=== PATIENT | female | born 1940 | race Caucasian/White ===

== ENCOUNTER 2017-07-05 11:07 | Inpatient (IN) ==
[2017-07-05] MEDS ORDERED: DEXTROSE 50% 25 GM/50 ML VIAL IV PRN (15:03)
[2017-07-05] MEDS ORDERED: GLUCAGON 1 MG VIAL IM PRN (15:03)
[2017-07-05 15:38] LABS: Basophils # 0.2 10*3/uL (0.0-0.2); Basophils % 1.1 % (0.0-0.8); Eosinophils # 0.3 10*3/uL (0.0-0.87); Eosinophils % 1.8 % (0.00-10.9); Hematocrit 29.2 VOL% (35.7-47.0); Hemoglobin 8.9 GM/DL (12.0-16.0); Immature Granulocytes % 12.5 %; Immature Granulocytes Absolute 1.74 #; Lymphocytes # 1.2 10*3/uL (1.4-4.0); Lymphocytes % 8.9 % (21.3-54.2); Mean Corpuscular HGB Conc 30.5 GM/DL (32-36); Mean Corpuscular Hemoglobin 33 PG (27-34); Mean Platelet Volume 10.6 FL (9.6-12.0); Monocytes # 0.7 10*3/uL (0.11-0.8); Monocytes % 4.7 % (1.7-12.7); NRBC # 0.03 10*3/uL; Neutrophils # 9.9 10*3/uL (1.4-7.4); Platelet Count 304 T/CUMM (130-400); Red Blood Count 2.68 MC/CUMM (3.8-5.5); Red Cell Distribution Width 15.4 % (9.3-17.3)
[2017-07-05 15:39] LABS: ABG Base Excess 0.8 MMOL/L (-2.5-2.5); ABG HCO3 25.1 MMOL/L (20-26); ABG Oxygen Saturation 95.7 % (95-100); ABG PO2 92.5 MM HG (80-95); ABG TCO2 29.1 MMOL/L (23-27); Allen Test Positive; Pt O2 Delivery Device Other
[2017-07-05 15:43] LABS: ABG PCO2 80.6 MM HG (35-48)
[2017-07-05 15:48] LABS: INR 0.9; PT Patient Result 9.9 SECS
[2017-07-05 16:05] LABS: Calcium 8.8 MG/DL (8.5-10.1); Osmolality,Calculated 281.7 MOS/KG (273-304); Potassium 5.3 MMOL/L (3.5-5.1)
[2017-07-05 16:10] LABS: Lactic Acid 0.7 MMOL/L (0.4-2.0)
[2017-07-05 16:57] LABS: Anisocytosis 1+; Lymphocytes 17 % (20-55); Platelet Estimate Normal; Polychromasia Few; Segmented Neutrophils 78 % (50-85); Total Cells Counted 100
[2017-07-05 17:55] LABS: Allen Test Positive; Pt O2 Delivery Device BIPAP
[2017-07-05 17:56] LABS: ABG Base Excess 1.3 MMOL/L (-2.5-2.5); ABG HCO3 25.6 MMOL/L (20-26); ABG Oxygen Saturation 98.4 % (95-100); ABG TCO2 29.8 MMOL/L (23-27)
[2017-07-05 18:03] LABS: ABG PH 7.194 (7.35-7.45)
[2017-07-05] MEDS: FUROSEMIDE 40 MG/4 ML VIAL IV SCH (18:25)
[2017-07-05] MEDS: MEROPENEM 1,000 MG in SYRINGE 1 EACH IV SCH (18:31)
[2017-07-05] MEDS: ENOXAPARIN 40 MG/0.4 ML SYRINGE SUBCUT SCH (18:36)
[2017-07-05 19:13] LABS: Apearance,Urine Slightly Hazy (Clear); Bacteria,Urine Many /HPF (Few); Bilirubin,Urine Negative (Negative); Blood, Urine Moderate mg/dL (Negative); Glucose,Urine (UA) Negative (Negative); Ketones,Urine Negative (Negative); Mucus,Urine Occasional /LPF (Occasional); Nitrite,Urine Negative (Negative); Protein,Urine Negative; RBC,Urine 9 /HPF (0-4); Squamous Epithelial Cell,Urine Occasional /HPF (0-10); Urine Color Yellow (Yellow); Urine Specific Gravity 1.011 (1.001-1.035); Urine Urobilinogen < 2.0 EU/DL (0.2-1.0); WBC,Urine 7 /HPF (0-6)
[2017-07-05] MEDS: DOCUSATE SODIUM 100 MG CAPSULE PO SCH (20:22)
[2017-07-05] MEDS: VANCOMYCIN INJ 1,500 MG in SODIUM CHLORIDE 0.9% 500 ML IV SCH (20:22)
[2017-07-05 21:28] LABS: Hemoglobin 8.6 GM/DL (12.0-16.0)
[2017-07-05] MEDS: CARVEDILOL 12.5 MG TABLET PO SCH (22:25)
[2017-07-05] MEDS: INSULIN LISPRO 100 UNIT/ML SUBCUT SCH (22:25)
[2017-07-05] MEDS: ACETAMINOPHEN 325 MG TABLET PO PRN (23:00)
[2017-07-06 02:16] LABS: Basophils # 0.1 10*3/uL (0.0-0.2); Basophils % 0.7 % (0.0-0.8); Eosinophils # 0.2 10*3/uL (0.0-0.87); Eosinophils % 1.8 % (0.00-10.9); Hematocrit 27.2 VOL% (35.7-47.0); Hemoglobin 8.5 GM/DL (12.0-16.0); Immature Granulocytes Absolute 1.31 #; Lymphocytes # 1.3 10*3/uL (1.4-4.0); Mean Corpuscular HGB Conc 31.3 GM/DL (32-36); Mean Corpuscular Hemoglobin 33 PG (27-34); Mean Corpuscular Volume 105.8 FL (87-102); Mean Platelet Volume 10.6 FL (9.6-12.0); Monocytes # 0.7 10*3/uL (0.11-0.8); Neutrophils # 9.6 10*3/uL (1.4-7.4); Neutrophils % 72.5 % (38.7-73.9); Platelet Count 287 T/CUMM (130-400); Red Blood Count 2.57 MC/CUMM (3.8-5.5); Red Cell Distribution Width 15.2 % (9.3-17.3); White Blood Count 13.2 T/CUMM (4-12)
[2017-07-06 03:18] LABS: Calcium 8.6 MG/DL (8.5-10.1); Risk Ratio 3.68
[2017-07-06 03:49] LABS: Anisocytosis 1+; Band Neutrophils 13 % (0-10); Eosinophils 3 % (0-10); Lymphocytes 13 % (20-55); Metamyelocytes 1 %; Poikilocytosis 1+; Segmented Neutrophils 68 % (50-85); Total Cells Counted 100
[2017-07-06 04:43] LABS: ABG Base Excess 1.8 MMOL/L (-2.5-2.5); ABG HCO3 31.6 MMOL/L (20-26); ABG Oxygen Saturation 94.2 % (95-100); ABG PO2 88.9 MM HG (80-95); ABG TCO2 34.3 MMOL/L (23-27); Allen Test Positive; Pt O2 Delivery Device BIPAP
[2017-07-06 04:44] LABS: ABG PCO2 88.5 MM HG (35-48)
[2017-07-06] MEDS: MEROPENEM 1,000 MG in SYRINGE 1 EACH IV SCH ×3 (05:15→17:30)
[2017-07-06] MEDS ORDERED: AMINOPHYLLINE 250 MG in SODIUM CHLORIDE 0.9% 100 ML IV ONE (06:43)
[2017-07-06] MEDS ORDERED: AMINOPHYLLINE 500 MG in SODIUM CHLORIDE 0.9% 480 ML IV SCH (07:00)
[2017-07-06] MEDS: INSULIN LISPRO 100 UNIT/ML SUBCUT SCH ×4 (07:42→21:25)
[2017-07-06] MEDS: FUROSEMIDE 40 MG/4 ML VIAL IV SCH ×2 (08:13→15:01)
[2017-07-06] MEDS: PANTOPRAZOLE 40 MG TABLET PO SCH (08:14)
[2017-07-06] MEDS: THEOPHYLLINE ER (24 HR) 400 MG CAPSULE PO SCH (08:14)
[2017-07-06] MEDS: ALLOPURINOL 300 MG TABLET PO SCH (08:14)
[2017-07-06] MEDS: CARVEDILOL 12.5 MG TABLET PO SCH ×2 (08:14→21:23)
[2017-07-06] MEDS: DOCUSATE SODIUM 100 MG CAPSULE PO SCH ×2 (08:14→21:25)
[2017-07-06 09:49] LABS: Hematocrit 28.2 VOL% (35.7-47.0)
[2017-07-06 10:01] LABS: ABG PCO2 81.3 MM HG (35-48)
[2017-07-06] MEDS: ACETAMINOPHEN 325 MG TABLET PO PRN ×2 (14:58→21:24)
[2017-07-06] MEDS: ENOXAPARIN 40 MG/0.4 ML SYRINGE SUBCUT SCH (17:20)
[2017-07-06] MEDS: VANCOMYCIN INJ 1,500 MG in SODIUM CHLORIDE 0.9% 500 ML IV SCH (20:30)
[2017-07-07 04:12] LABS: ABG Base Excess 9.4 MMOL/L (-2.5-2.5); ABG HCO3 35.5 MMOL/L (20-26); ABG Oxygen Saturation 95.2 % (95-100); ABG PCO2 58.5 MM HG (35-48); ABG PH 7.401 (7.35-7.45); ABG PO2 81.3 MM HG (80-95); ABG TCO2 37.3 MMOL/L (23-27); Allen Test Positive; Pt O2 Delivery Device BIPAP
[2017-07-07] MEDS: MEROPENEM 1,000 MG in SYRINGE 1 EACH IV SCH ×3 (06:38→17:12)
[2017-07-07] MEDS: ACETAMINOPHEN 325 MG TABLET PO PRN ×2 (06:39→16:43)
[2017-07-07] MEDS: INSULIN LISPRO 100 UNIT/ML SUBCUT SCH ×4 (07:39→21:44)
[2017-07-07] MEDS: FLUTICASONE 50 MCG NASAL SPRAY 16 GM BOTTLE BOTH NARES SCH (09:00)
[2017-07-07] MEDS: DOCUSATE SODIUM 100 MG CAPSULE PO SCH ×2 (09:08→21:44)
[2017-07-07] MEDS: THEOPHYLLINE ER (24 HR) 400 MG CAPSULE PO SCH (09:08)
[2017-07-07] MEDS: ALLOPURINOL 300 MG TABLET PO SCH (09:08)
[2017-07-07] MEDS: FUROSEMIDE 40 MG/4 ML VIAL IV SCH ×2 (09:09→16:44)
[2017-07-07] MEDS: CARVEDILOL 12.5 MG TABLET PO SCH ×2 (09:09→21:43)
[2017-07-07] MEDS: PANTOPRAZOLE 40 MG TABLET PO SCH (09:09)
[2017-07-07] MEDS: ENOXAPARIN 40 MG/0.4 ML SYRINGE SUBCUT SCH (16:43)
[2017-07-07] MEDS: ONDANSETRON 4 MG/2 ML VIAL IV PRN (16:48)
[2017-07-07 19:59] LABS: Calcium 8.7 MG/DL (8.5-10.1); Osmolality,Calculated 281.1 MOS/KG (273-304); Potassium 3.9 MMOL/L (3.5-5.1)
[2017-07-07] MEDS: VANCOMYCIN INJ 1,500 MG in SODIUM CHLORIDE 0.9% 500 ML IV SCH (21:43)
[2017-07-08] MEDS: ACETAMINOPHEN 325 MG TABLET PO PRN (01:00)
[2017-07-08 03:49] LABS: Allen Test Positive
[2017-07-08 03:50] LABS: ABG Base Excess 14.6 MMOL/L (-2.5-2.5); ABG HCO3 38.4 MMOL/L (20-26); ABG Oxygen Saturation 92.6 % (95-100); ABG PH 7.389 (7.35-7.45); ABG PO2 67.5 MM HG (80-95); ABG TCO2 39.3 MMOL/L (23-27)
[2017-07-08 03:53] LABS: ABG PCO2 69.8 MM HG (35-48)
[2017-07-08 05:16] LABS: Basophils # 0.1 10*3/uL (0.0-0.2); Basophils % 1.3 % (0.0-0.8); Eosinophils # 0.5 10*3/uL (0.0-0.87); Hemoglobin 8.4 GM/DL (12.0-16.0); Immature Granulocytes % 9.3 %; Immature Granulocytes Absolute 0.97 #; Lymphocytes # 1.7 10*3/uL (1.4-4.0); Lymphocytes % 16.2 % (21.3-54.2); Mean Corpuscular HGB Conc 32.3 GM/DL (32-36); Mean Corpuscular Hemoglobin 34 PG (27-34); Mean Corpuscular Volume 104.4 FL (87-102); Mean Platelet Volume 9.7 FL (9.6-12.0); Monocytes # 0.5 10*3/uL (0.11-0.8); Monocytes % 5.2 % (1.7-12.7); NRBC # 0.02 10*3/uL; Neutrophils # 6.6 10*3/uL (1.4-7.4); Platelet Count 278 T/CUMM (130-400); Red Blood Count 2.49 MC/CUMM (3.8-5.5); Red Cell Distribution Width 14.6 % (9.3-17.3); White Blood Count 10.5 T/CUMM (4-12)
[2017-07-08 05:55] LABS: Calcium 8.4 MG/DL (8.5-10.1)
[2017-07-08] MEDS: MEROPENEM 1,000 MG in SYRINGE 1 EACH IV SCH ×3 (06:13→18:11)
[2017-07-08 07:13] LABS: Band Neutrophils 8 % (0-10); Eosinophils 2 % (0-10); Lymphocytes 14 % (20-55); Myelocytes 1 %; Segmented Neutrophils 70 % (50-85); Total Cells Counted 100
[2017-07-08 07:14] LABS: Hypochromasia 2+; Macrocytosis 1+; Platelet Estimate Adequate; Target Cells Slight
[2017-07-08] MEDS: INSULIN LISPRO 100 UNIT/ML SUBCUT SCH ×4 (07:57→21:34)
[2017-07-08] MEDS: ALLOPURINOL 300 MG TABLET PO SCH (09:24)
[2017-07-08] MEDS: THEOPHYLLINE ER (24 HR) 400 MG CAPSULE PO SCH (09:24)
[2017-07-08] MEDS: CARVEDILOL 12.5 MG TABLET PO SCH ×2 (09:24→21:33)
[2017-07-08] MEDS: DOCUSATE SODIUM 100 MG CAPSULE PO SCH ×2 (09:24→21:33)
[2017-07-08] MEDS: FLUTICASONE 50 MCG NASAL SPRAY 16 GM BOTTLE BOTH NARES SCH (09:25)
[2017-07-08] MEDS: FUROSEMIDE 40 MG/4 ML VIAL IV SCH ×2 (09:25→16:59)
[2017-07-08] MEDS: PANTOPRAZOLE 40 MG TABLET PO SCH (09:25)
[2017-07-08 16:57] LABS: ABG Base Excess 18.7 MMOL/L (-2.5-2.5); ABG HCO3 42.7 MMOL/L (20-26); ABG Oxygen Saturation 90.9 % (95-100); ABG PH 7.397 (7.35-7.45); ABG PO2 62.3 MM HG (80-95); ABG TCO2 43.7 MMOL/L (23-27)
[2017-07-08 16:59] LABS: ABG PCO2 76.1 MM HG (35-48)
[2017-07-08] MEDS: ENOXAPARIN 40 MG/0.4 ML SYRINGE SUBCUT SCH (18:10)
[2017-07-08] MEDS: VANCOMYCIN INJ 1,500 MG in SODIUM CHLORIDE 0.9% 500 ML IV SCH (21:34)
[2017-07-09 03:18] LABS: ABG Base Excess 18.7 MMOL/L (-2.5-2.5); ABG Oxygen Saturation 98.8 % (95-100); ABG PCO2 60.2 MM HG (35-48); ABG PH 7.484 (7.35-7.45); ABG TCO2 41.6 MMOL/L (23-27); Allen Test Positive; Pt O2 Delivery Device BIPAP
[2017-07-09] MEDS: MEROPENEM 1,000 MG in SYRINGE 1 EACH IV SCH ×3 (03:30→19:32)
[2017-07-09] MEDS ORDERED: MAGNESIUM CHLORIDE 64 MG TABLET PO SCH (09:00)
[2017-07-09] MEDS ORDERED: FLUTICASONE 50 MCG NASAL SPRAY 16 GM BOTTLE BOTH NARES SCH (09:00)
[2017-07-09] MEDS ORDERED: ERGOCALCIFEROL 50,000 UNIT CAPSULE PO SCH (09:00)
[2017-07-09] MEDS: ALLOPURINOL 300 MG TABLET PO SCH (09:03)
[2017-07-09] MEDS: THEOPHYLLINE ER (24 HR) 400 MG CAPSULE PO SCH (09:03)
[2017-07-09] MEDS: PANTOPRAZOLE 40 MG TABLET PO SCH (09:03)
[2017-07-09] MEDS: CALCITRIOL 0.25 MCG CAPSULE PO SCH (09:03)
[2017-07-09] MEDS: SERTRALINE 50 MG TABLET PO SCH (09:03)
[2017-07-09] MEDS: CARVEDILOL 12.5 MG TABLET PO SCH ×2 (09:03→20:28)
[2017-07-09] MEDS: DOCUSATE SODIUM 100 MG CAPSULE PO SCH ×2 (09:03→20:28)
[2017-07-09] MEDS: FUROSEMIDE 40 MG/4 ML VIAL IV SCH ×2 (09:07→19:31)
[2017-07-09] MEDS: INSULIN LISPRO 100 UNIT/ML SUBCUT SCH ×4 (09:11→20:28)
[2017-07-09] MEDS: MAGNESIUM CHLORIDE 64 MG TABLET PO SCH ×2 (09:11→20:28)
[2017-07-09] MEDS: FLUTICASONE 50 MCG NASAL SPRAY 16 GM BOTTLE BOTH NARES SCH (09:20)
[2017-07-09] MEDS: ACETAMINOPHEN 325 MG TABLET PO PRN (10:01)
[2017-07-09] MEDS: ENOXAPARIN 40 MG/0.4 ML SYRINGE SUBCUT SCH (19:41)
[2017-07-09] MEDS: VANCOMYCIN INJ 1,500 MG in SODIUM CHLORIDE 0.9% 500 ML IV SCH (20:38)
[2017-07-10] MEDS: MEROPENEM 1,000 MG in SYRINGE 1 EACH IV SCH ×2 (03:27→09:28)
[2017-07-10 05:20] LABS: Basophils # 0.1 10*3/uL (0.0-0.2); Basophils % 1.1 % (0.0-0.8); Eosinophils # 0.4 10*3/uL (0.0-0.87); Eosinophils % 3.7 % (0.00-10.9); Hematocrit 26.8 VOL% (35.7-47.0); Hemoglobin 8.7 GM/DL (12.0-16.0); Immature Granulocytes % 9.7 %; Immature Granulocytes Absolute 1.15 #; Lymphocytes # 1.5 10*3/uL (1.4-4.0); Lymphocytes % 12.4 % (21.3-54.2); Mean Corpuscular HGB Conc 32.5 GM/DL (32-36); Mean Corpuscular Hemoglobin 34 PG (27-34); Mean Corpuscular Volume 103.5 FL (87-102); Monocytes # 0.7 10*3/uL (0.11-0.8); Monocytes % 5.5 % (1.7-12.7); Neutrophils % 67.6 % (38.7-73.9); Platelet Count 259 T/CUMM (130-400); Red Blood Count 2.59 MC/CUMM (3.8-5.5); Red Cell Distribution Width 14.5 % (9.3-17.3); White Blood Count 11.8 T/CUMM (4-12)
[2017-07-10 05:35] LABS: Albumin 2.6 G/DL (3.4-5.0); Bilirubin,Total 0.7 MG/DL (0.2-1.0); Calcium 8.6 MG/DL (8.5-10.1); Osmolality,Calculated 275.5 MOS/KG (273-304); Potassium 3.6 MMOL/L (3.5-5.1); Total Protein 6.9 G/DL (6.4-8.3)
[2017-07-10 05:41] LABS: Band Neutrophils 3 % (0-10); Eosinophils 5 % (0-10); Giant Platelets Few; Hypochromasia 1+; Lymphocytes 15 % (20-55); Macrocytosis Slight; Myelocytes 1 %; Ovalocytes Slight; Platelet Estimate Adequate; Segmented Neutrophils 71 % (50-85); Total Cells Counted 100
[2017-07-10] MEDS: MAGNESIUM CHLORIDE 64 MG TABLET PO SCH ×2 (09:29→20:15)
[2017-07-10] MEDS: THEOPHYLLINE ER (24 HR) 400 MG CAPSULE PO SCH (09:29)
[2017-07-10] MEDS: CARVEDILOL 12.5 MG TABLET PO SCH ×2 (09:29→20:15)
[2017-07-10] MEDS: SERTRALINE 50 MG TABLET PO SCH (09:29)
[2017-07-10] MEDS: ALLOPURINOL 300 MG TABLET PO SCH (09:29)
[2017-07-10] MEDS: PANTOPRAZOLE 40 MG TABLET PO SCH (09:29)
[2017-07-10] MEDS: DOCUSATE SODIUM 100 MG CAPSULE PO SCH ×2 (09:30→20:16)
[2017-07-10] MEDS: INSULIN LISPRO 100 UNIT/ML SUBCUT SCH ×4 (09:30→20:21)
[2017-07-10] MEDS: FLUTICASONE 50 MCG NASAL SPRAY 16 GM BOTTLE BOTH NARES SCH (09:30)
[2017-07-10] MEDS: FUROSEMIDE 40 MG/4 ML VIAL IV SCH ×2 (09:34→17:12)
[2017-07-10] MEDS: CEFUROXIME 250 MG TABLET PO SCH ×2 (11:27→20:16)
[2017-07-10] MEDS: ENOXAPARIN 40 MG/0.4 ML SYRINGE SUBCUT SCH (17:12)
[2017-07-10] MEDS: ZALEPLON 5 MG CAPSULE PO SCH (20:15)
[2017-07-11 05:40] LABS: Basophils # 0.2 10*3/uL (0.0-0.2); Basophils % 1.5 % (0.0-0.8); Eosinophils # 0.4 10*3/uL (0.0-0.87); Eosinophils % 3.3 % (0.00-10.9); Hematocrit 27.8 VOL% (35.7-47.0); Immature Granulocytes % 10.5 %; Immature Granulocytes Absolute 1.26 #; Lymphocytes # 1.3 10*3/uL (1.4-4.0); Lymphocytes % 10.6 % (21.3-54.2); Mean Corpuscular HGB Conc 32.4 GM/DL (32-36); Mean Corpuscular Hemoglobin 34 PG (27-34); Mean Corpuscular Volume 103.7 FL (87-102); Mean Platelet Volume 10.5 FL (9.6-12.0); Monocytes # 0.6 10*3/uL (0.11-0.8); Monocytes % 4.8 % (1.7-12.7); NRBC # 0.03 10*3/uL; Neutrophils # 8.3 10*3/uL (1.4-7.4); Neutrophils % 69.3 % (38.7-73.9); Platelet Count 251 T/CUMM (130-400); Red Blood Count 2.68 MC/CUMM (3.8-5.5); Red Cell Distribution Width 14.5 % (9.3-17.3)
[2017-07-11 06:10] LABS: Band Neutrophils 3 % (0-10); Eosinophils 4 % (0-10); Lymphocytes 13 % (20-55); Nucleated Red Blood Cells 2 (0-5); Segmented Neutrophils 73 % (50-85); Total Cells Counted 100
[2017-07-11 06:11] LABS: Giant Platelets Few; Hypochromasia 1+; Ovalocytes Slight; Platelet Estimate Adequate
[2017-07-11 06:12] LABS: Macrocytosis Slight
[2017-07-11 06:31] LABS: Calcium 8.9 MG/DL (8.5-10.1); Osmolality,Calculated 272.7 MOS/KG (273-304); Potassium 3.8 MMOL/L (3.5-5.1)
[2017-07-11] MEDS: INSULIN LISPRO 100 UNIT/ML SUBCUT SCH ×4 (07:45→21:13)
[2017-07-11] MEDS: PANTOPRAZOLE 40 MG TABLET PO SCH ×2 (08:40→20:59)
[2017-07-11] MEDS: THEOPHYLLINE ER (24 HR) 400 MG CAPSULE PO SCH (08:40)
[2017-07-11] MEDS: CALCITRIOL 0.25 MCG CAPSULE PO SCH (08:40)
[2017-07-11] MEDS: MAGNESIUM CHLORIDE 64 MG TABLET PO SCH ×2 (08:41→20:59)
[2017-07-11] MEDS: CARVEDILOL 12.5 MG TABLET PO SCH ×2 (08:41→21:08)
[2017-07-11] MEDS: CEFUROXIME 250 MG TABLET PO SCH ×2 (08:41→20:59)
[2017-07-11] MEDS: ALLOPURINOL 300 MG TABLET PO SCH (08:41)
[2017-07-11] MEDS: FLUTICASONE 50 MCG NASAL SPRAY 16 GM BOTTLE BOTH NARES SCH (08:42)
[2017-07-11] MEDS: FUROSEMIDE 40 MG/4 ML VIAL IV SCH (08:42)
[2017-07-11] MEDS: DOCUSATE SODIUM 100 MG CAPSULE PO SCH ×2 (08:42→21:02)
[2017-07-11] MEDS: SERTRALINE 50 MG TABLET PO SCH (08:42)
[2017-07-11] MEDS ORDERED: NON-FORMULARY MEDICATION (Acetaminophen [Pain Relief] 650 MG) PO PRN (10:13)
[2017-07-11] MEDS ORDERED: NON-FORMULARY MEDICATION (Losartan Potassium [Losartan Potassium] 100 MG) PO SCH (10:13)
[2017-07-11] MEDS ORDERED: ENOXAPARIN 30 MG/0.3 ML SYRINGE SUBCUT SCH (10:13)
[2017-07-11] MEDS ORDERED: LOSARTAN 50 MG TABLET PO SCH (11:30)
[2017-07-11] MEDS: ONDANSETRON 4 MG/2 ML VIAL IV SCH ×2 (11:35→16:39)
[2017-07-11] MEDS: NITROFURANTOIN MACRO/MONO 100 MG CAPSULE PO SCH ×2 (11:57→21:08)
[2017-07-11] MEDS: CLOPIDOGREL 75 MG TABLET PO SCH (11:57)
[2017-07-11] MEDS: LIDOCAINE 5% PATCH TRANSDERM SCH (11:57)
[2017-07-11] MEDS: ENOXAPARIN 40 MG/0.4 ML SYRINGE SUBCUT SCH (16:39)
[2017-07-11] MEDS: ZALEPLON 5 MG CAPSULE PO SCH (20:59)
[2017-07-12] MEDS: ONDANSETRON 4 MG/2 ML VIAL IV SCH ×4 (01:59→17:00)
[2017-07-12] MEDS: ACETAMINOPHEN 325 MG TABLET PO PRN (02:00)
[2017-07-12 05:53] LABS: Basophils # 0.1 10*3/uL (0.0-0.2); Basophils % 0.5 % (0.0-0.8); Eosinophils # 0.2 10*3/uL (0.0-0.87); Eosinophils % 2.2 % (0.00-10.9); Hematocrit 24.4 VOL% (35.7-47.0); Immature Granulocytes % 9.5 %; Immature Granulocytes Absolute 1.05 #; Lymphocytes # 1.3 10*3/uL (1.4-4.0); Lymphocytes % 11.9 % (21.3-54.2); Mean Corpuscular HGB Conc 32.8 GM/DL (32-36); Mean Corpuscular Hemoglobin 33 PG (27-34); Mean Corpuscular Volume 101.2 FL (87-102); Mean Platelet Volume 10.7 FL (9.6-12.0); Monocytes # 0.6 10*3/uL (0.11-0.8); Monocytes % 5.4 % (1.7-12.7); NRBC # 0.05 10*3/uL; Neutrophils # 7.8 10*3/uL (1.4-7.4); Neutrophils % 70.5 % (38.7-73.9); Platelet Count 265 T/CUMM (130-400); Red Blood Count 2.41 MC/CUMM (3.8-5.5); Red Cell Distribution Width 14.8 % (9.3-17.3); White Blood Count 11.1 T/CUMM (4-12)
[2017-07-12 06:22] LABS: Eosinophils 6 % (0-10); Hypochromasia 1+; Lymphocytes 13 % (20-55); Ovalocytes Slight; Platelet Estimate Adequate; Segmented Neutrophils 76 % (50-85); Total Cells Counted 100
[2017-07-12 06:23] LABS: Calcium 8.5 MG/DL (8.5-10.1); Osmolality,Calculated 280.7 MOS/KG (273-304); Potassium 3.8 MMOL/L (3.5-5.1)
[2017-07-12] MEDS: INSULIN LISPRO 100 UNIT/ML SUBCUT SCH ×4 (07:53→22:27)
[2017-07-12] MEDS: MAGNESIUM CHLORIDE 64 MG TABLET PO SCH ×2 (08:30→22:27)
[2017-07-12] MEDS: CARVEDILOL 12.5 MG TABLET PO SCH ×2 (08:31→22:27)
[2017-07-12] MEDS: ALLOPURINOL 300 MG TABLET PO SCH (08:31)
[2017-07-12] MEDS: CEFUROXIME 250 MG TABLET PO SCH ×2 (08:31→22:26)
[2017-07-12] MEDS: PANTOPRAZOLE 40 MG TABLET PO SCH ×2 (08:31→22:27)
[2017-07-12] MEDS: THEOPHYLLINE ER (24 HR) 400 MG CAPSULE PO SCH (08:31)
[2017-07-12] MEDS: SERTRALINE 50 MG TABLET PO SCH (08:31)
[2017-07-12] MEDS: DOCUSATE SODIUM 100 MG CAPSULE PO SCH ×2 (08:31→22:27)
[2017-07-12] MEDS: LIDOCAINE 5% PATCH TRANSDERM SCH (08:44)
[2017-07-12] MEDS: CLOPIDOGREL 75 MG TABLET PO SCH (08:44)
[2017-07-12 11:55] LABS: Apearance,Urine CLOUDY (Clear); Bilirubin,Urine Negative (Negative); Blood, Urine Moderate mg/dL (Negative); Glucose,Urine (UA) Negative (Negative); Granular Casts,Urine 11 /LPF (0-1); Hyaline Casts,Urine 9 /LPF (0-3); Ketones,Urine Negative (Negative); Mucus,Urine Occasional /LPF (Occasional); Nitrite,Urine Negative (Negative); Protein,Urine 100 MG/DL; RBC,Urine 23 /HPF (0-4); Squamous Epithelial Cell,Urine Occasional /HPF (0-10); Urine Color Amber (Yellow); Urine Specific Gravity 1.025 (1.001-1.035); Urine Urobilinogen < 2.0 EU/DL (0.2-1.0); WBC,Urine 20 /HPF (0-6)
[2017-07-12] MEDS ORDERED: SODIUM CHLORIDE 0.9% 1,000 ML IV SCH (12:30)
[2017-07-12] MEDS: SODIUM CHLORIDE 0.45% 1,000 ML IV SCH ×2 (13:28→22:26)
[2017-07-12] MEDS: ENOXAPARIN 40 MG/0.4 ML SYRINGE SUBCUT SCH (17:26)
[2017-07-12] MEDS: ZALEPLON 5 MG CAPSULE PO SCH (22:27)
[2017-07-13] MEDS: ONDANSETRON 4 MG/2 ML VIAL IV SCH ×5 (01:40→23:11)
[2017-07-13 02:11] LABS: Basophils # 0.1 10*3/uL (0.0-0.2); Basophils % 0.4 % (0.0-0.8); Eosinophils # 0.2 10*3/uL (0.0-0.87); Eosinophils % 1.7 % (0.00-10.9); Hematocrit 23.2 VOL% (35.7-47.0); Hemoglobin 7.8 GM/DL (12.0-16.0); Immature Granulocytes % 7.4 %; Immature Granulocytes Absolute 0.87 #; Lymphocytes % 8.3 % (21.3-54.2); Mean Corpuscular HGB Conc 33.6 GM/DL (32-36); Mean Corpuscular Hemoglobin 34 PG (27-34); Mean Platelet Volume 10.8 FL (9.6-12.0); Monocytes # 0.5 10*3/uL (0.11-0.8); Monocytes % 4.4 % (1.7-12.7); NRBC # 0.02 10*3/uL; Neutrophils # 9.2 10*3/uL (1.4-7.4); Neutrophils % 77.8 % (38.7-73.9); Platelet Count 238 T/CUMM (130-400); Red Blood Count 2.32 MC/CUMM (3.8-5.5); Red Cell Distribution Width 14.8 % (9.3-17.3); White Blood Count 11.8 T/CUMM (4-12)
[2017-07-13 02:37] LABS: Albumin 2.5 G/DL (3.4-5.0); Bilirubin,Total 0.6 MG/DL (0.2-1.0); Osmolality,Calculated 276.1 MOS/KG (273-304); Potassium 4.1 MMOL/L (3.5-5.1); Total Protein 6.7 G/DL (6.4-8.3)
[2017-07-13 02:44] LABS: Free T4 (Free Thyroxine) 0.79 NG/DL (0.76-1.46); Thyroid Stimulating Hormone 2.4 uIU/ml (0.358-3.74)
[2017-07-13 03:05] LABS: Calcium 7.9 MG/DL (8.5-10.1); Osmolality,Calculated 276.1 MOS/KG (273-304); Potassium 4.1 MMOL/L (3.5-5.1)
[2017-07-13 05:39] LABS: Band Neutrophils 2 % (0-10); Lymphocytes 11 % (20-55); Platelet Estimate Normal; Segmented Neutrophils 87 % (50-85); Total Cells Counted 100
[2017-07-13] MEDS: SODIUM CHLORIDE 0.45% 1,000 ML IV SCH (06:45)
[2017-07-13] MEDS: INSULIN LISPRO 100 UNIT/ML SUBCUT SCH ×4 (07:53→20:30)
[2017-07-13] MEDS: SODIUM CHLORIDE 0.9% 1,000 ML IV SCH ×2 (08:34→19:15)
[2017-07-13] MEDS: DOCUSATE SODIUM 100 MG CAPSULE PO SCH ×2 (09:13→20:33)
[2017-07-13] MEDS: CEFUROXIME 250 MG TABLET PO SCH ×2 (09:14→20:30)
[2017-07-13] MEDS: SERTRALINE 50 MG TABLET PO SCH (09:14)
[2017-07-13] MEDS: ALLOPURINOL 300 MG TABLET PO SCH (09:14)
[2017-07-13] MEDS: CARVEDILOL 12.5 MG TABLET PO SCH (09:14)
[2017-07-13] MEDS: CLOPIDOGREL 75 MG TABLET PO SCH (09:14)
[2017-07-13] MEDS: CALCITRIOL 0.25 MCG CAPSULE PO SCH (09:14)
[2017-07-13] MEDS: MAGNESIUM CHLORIDE 64 MG TABLET PO SCH ×2 (09:14→20:30)
[2017-07-13] MEDS: THEOPHYLLINE ER (24 HR) 400 MG CAPSULE PO SCH (09:14)
[2017-07-13] MEDS: LIDOCAINE 5% PATCH TRANSDERM SCH (09:14)
[2017-07-13] MEDS: PANTOPRAZOLE 40 MG TABLET PO SCH ×2 (09:14→20:30)
[2017-07-13 09:59] LABS: ABG Base Excess 7.2 MMOL/L (-2.5-2.5); ABG Oxygen Saturation 89.8 % (95-100); ABG PCO2 55.5 MM HG (35-48); ABG PH 7.387 (7.35-7.45); ABG PO2 60.7 MM HG (80-95); ABG TCO2 31.4 MMOL/L (23-27)
[2017-07-13] MEDS ORDERED: SODIUM CHLORIDE 0.9% 1,000 ML IV PRN (11:37)
[2017-07-13] MEDS: ACETAMINOPHEN 325 MG TABLET PO PRN (11:40)
[2017-07-13] MEDS: ENOXAPARIN 40 MG/0.4 ML SYRINGE SUBCUT SCH (17:21)
[2017-07-13] MEDS ORDERED: FUROSEMIDE 20 MG/2 ML VIAL IV ONE (18:00)
[2017-07-13] MEDS: ZALEPLON 5 MG CAPSULE PO SCH (20:30)
[2017-07-13] MEDS: CARVEDILOL 3.125 MG TABLET PO SCH (20:30)
[2017-07-14] MEDS: ONDANSETRON 4 MG/2 ML VIAL IV SCH ×3 (05:39→16:53)
[2017-07-14 06:04] LABS: Basophils # 0.1 10*3/uL (0.0-0.2); Basophils % 0.5 % (0.0-0.8); Eosinophils # 0.1 10*3/uL (0.0-0.87); Eosinophils % 0.7 % (0.00-10.9); Hematocrit 29.1 VOL% (35.7-47.0); Hemoglobin 9.6 GM/DL (12.0-16.0); Immature Granulocytes Absolute 0.86 #; Lymphocytes % 10.5 % (21.3-54.2); Mean Corpuscular Hemoglobin 32 PG (27-34); Mean Corpuscular Volume 97.3 FL (87-102); Mean Platelet Volume 10.6 FL (9.6-12.0); Monocytes # 0.4 10*3/uL (0.11-0.8); Monocytes % 4.5 % (1.7-12.7); NRBC # 0.02 10*3/uL; Neutrophils # 7.1 10*3/uL (1.4-7.4); Neutrophils % 74.8 % (38.7-73.9); Platelet Count 227 T/CUMM (130-400); Red Blood Count 2.99 MC/CUMM (3.8-5.5); Red Cell Distribution Width 15.8 % (9.3-17.3); White Blood Count 9.5 T/CUMM (4-12)
[2017-07-14 06:37] LABS: Calcium 8.5 MG/DL (8.5-10.1); Osmolality,Calculated 281.2 MOS/KG (273-304); Potassium 3.6 MMOL/L (3.5-5.1)
[2017-07-14 06:39] LABS: Band Neutrophils 1 % (0-10); Hypochromasia Slight; Lymphocytes 19 % (20-55); Nucleated Red Blood Cells 1 (0-5); Ovalocytes Slight; Platelet Estimate Adequate; Segmented Neutrophils 77 % (50-85); Total Cells Counted 100
[2017-07-14] MEDS: SODIUM CHLORIDE 0.9% 1,000 ML IV SCH ×2 (09:12→14:47)
[2017-07-14] MEDS: LIDOCAINE 5% PATCH TRANSDERM SCH (09:12)
[2017-07-14] MEDS: ALLOPURINOL 300 MG TABLET PO SCH (09:13)
[2017-07-14] MEDS: DOCUSATE SODIUM 100 MG CAPSULE PO SCH ×2 (09:13→21:19)
[2017-07-14] MEDS: MAGNESIUM CHLORIDE 64 MG TABLET PO SCH ×2 (09:13→21:19)
[2017-07-14] MEDS: PANTOPRAZOLE 40 MG TABLET PO SCH ×2 (09:13→21:19)
[2017-07-14] MEDS: CARVEDILOL 3.125 MG TABLET PO SCH ×2 (09:13→21:19)
[2017-07-14] MEDS: SERTRALINE 50 MG TABLET PO SCH (09:13)
[2017-07-14] MEDS: THEOPHYLLINE ER (24 HR) 400 MG CAPSULE PO SCH (09:13)
[2017-07-14] MEDS: amLODIPine 5 MG TABLET PO SCH (09:13)
[2017-07-14] MEDS: INSULIN LISPRO 100 UNIT/ML SUBCUT SCH ×4 (09:35→21:19)
[2017-07-14] MEDS: ACETAMINOPHEN 325 MG TABLET PO PRN (14:46)
[2017-07-14] MEDS ORDERED: SODIUM CHLORIDE 0.45% 1,000 ML IV SCH (15:00)
[2017-07-14] MEDS: ENOXAPARIN 40 MG/0.4 ML SYRINGE SUBCUT SCH (16:49)
[2017-07-14] MEDS: ZALEPLON 5 MG CAPSULE PO SCH (21:19)
[2017-07-14] MEDS ORDERED: ALBUTEROL/IPRATROPIUM 3 ML NEB RESP TX PRN (23:40)
[2017-07-15] MEDS: ONDANSETRON 4 MG/2 ML VIAL IV SCH ×4 (00:22→16:53)
[2017-07-15] MEDS ORDERED: ALBUTEROL/IPRATROPIUM 3 ML NEB RESP TX SCH (01:00)
[2017-07-15 06:38] LABS: Basophils # 0.1 10*3/uL (0.0-0.2); Basophils % 0.6 % (0.0-0.8); Eosinophils # 0.2 10*3/uL (0.0-0.87); Eosinophils % 1.9 % (0.00-10.9); Hematocrit 28.4 VOL% (35.7-47.0); Hemoglobin 9.6 GM/DL (12.0-16.0); Immature Granulocytes % 6.8 %; Immature Granulocytes Absolute 0.79 #; Lymphocytes # 1.4 10*3/uL (1.4-4.0); Lymphocytes % 11.9 % (21.3-54.2); Mean Corpuscular HGB Conc 33.8 GM/DL (32-36); Mean Corpuscular Hemoglobin 33 PG (27-34); Mean Corpuscular Volume 97.9 FL (87-102); Mean Platelet Volume 10.5 FL (9.6-12.0); Monocytes # 0.6 10*3/uL (0.11-0.8); Monocytes % 4.9 % (1.7-12.7); Neutrophils # 8.5 10*3/uL (1.4-7.4); Neutrophils % 73.9 % (38.7-73.9); Platelet Count 214 T/CUMM (130-400); Red Cell Distribution Width 15.9 % (9.3-17.3); White Blood Count 11.6 T/CUMM (4-12)
[2017-07-15 07:02] LABS: Band Neutrophils 1 % (0-10); Eosinophils 1 % (0-10); Lymphocytes 6 % (20-55); Platelet Estimate Normal; Segmented Neutrophils 89 % (50-85); Total Cells Counted 100
[2017-07-15 07:06] LABS: Calcium 8.6 MG/DL (8.5-10.1); Osmolality,Calculated 283.7 MOS/KG (273-304); Potassium 4.1 MMOL/L (3.5-5.1)
[2017-07-15] MEDS: INSULIN LISPRO 100 UNIT/ML SUBCUT SCH ×3 (09:35→16:33)
[2017-07-15] MEDS: amLODIPine 5 MG TABLET PO SCH (09:36)
[2017-07-15] MEDS: DOCUSATE SODIUM 100 MG CAPSULE PO SCH ×2 (09:36→21:21)
[2017-07-15] MEDS: CARVEDILOL 3.125 MG TABLET PO SCH ×2 (09:36→21:21)
[2017-07-15] MEDS: LIDOCAINE 5% PATCH TRANSDERM SCH (09:36)
[2017-07-15] MEDS: SERTRALINE 50 MG TABLET PO SCH (09:37)
[2017-07-15] MEDS: ALLOPURINOL 300 MG TABLET PO SCH (09:37)
[2017-07-15] MEDS: THEOPHYLLINE ER (24 HR) 400 MG CAPSULE PO SCH (09:37)
[2017-07-15] MEDS: MAGNESIUM CHLORIDE 64 MG TABLET PO SCH ×2 (09:37→21:20)
[2017-07-15] MEDS: PANTOPRAZOLE 40 MG TABLET PO SCH ×2 (09:37→21:21)
[2017-07-15] MEDS: ENOXAPARIN 40 MG/0.4 ML SYRINGE SUBCUT SCH (16:53)
[2017-07-15] MEDS: ZALEPLON 5 MG CAPSULE PO SCH (21:21)
[2017-07-16] MEDS: INSULIN LISPRO 100 UNIT/ML SUBCUT SCH ×5 (00:13→21:49)
[2017-07-16] MEDS: ONDANSETRON 4 MG/2 ML VIAL IV SCH ×5 (00:46→23:33)
[2017-07-16 06:07] LABS: Basophils # 0.1 10*3/uL (0.0-0.2); Basophils % 0.8 % (0.0-0.8); Eosinophils # 0.3 10*3/uL (0.0-0.87); Eosinophils % 1.9 % (0.00-10.9); Hematocrit 30.5 VOL% (35.7-47.0); Hemoglobin 9.9 GM/DL (12.0-16.0); Immature Granulocytes % 6.2 %; Immature Granulocytes Absolute 0.88 #; Lymphocytes # 1.3 10*3/uL (1.4-4.0); Lymphocytes % 9.3 % (21.3-54.2); Mean Corpuscular HGB Conc 32.5 GM/DL (32-36); Mean Corpuscular Hemoglobin 33 PG (27-34); Mean Corpuscular Volume 101.3 FL (87-102); Mean Platelet Volume 11.2 FL (9.6-12.0); Monocytes # 0.6 10*3/uL (0.11-0.8); Monocytes % 4.3 % (1.7-12.7); NRBC # 0.02 10*3/uL; Neutrophils # 11.1 10*3/uL (1.4-7.4); Neutrophils % 77.5 % (38.7-73.9); Platelet Count 209 T/CUMM (130-400); Red Blood Count 3.01 MC/CUMM (3.8-5.5); Red Cell Distribution Width 15.7 % (9.3-17.3); White Blood Count 14.3 T/CUMM (4-12)
[2017-07-16 06:32] LABS: Band Neutrophils 1 % (0-10); Lymphocytes 19 % (20-55); Macrocytosis 3+; Platelet Estimate Normal; Segmented Neutrophils 76 % (50-85); Total Cells Counted 100
[2017-07-16 06:40] LABS: Albumin 2.5 G/DL (3.4-5.0); Bilirubin,Total 0.7 MG/DL (0.2-1.0); Calcium 9.1 MG/DL (8.5-10.1); Osmolality,Calculated 280.7 MOS/KG (273-304); Potassium 4.2 MMOL/L (3.5-5.1)
[2017-07-16] MEDS: CARVEDILOL 3.125 MG TABLET PO SCH ×2 (09:35→21:56)
[2017-07-16] MEDS: THEOPHYLLINE ER (24 HR) 400 MG CAPSULE PO SCH (09:35)
[2017-07-16] MEDS: MAGNESIUM CHLORIDE 64 MG TABLET PO SCH ×2 (09:35→21:48)
[2017-07-16] MEDS: LIDOCAINE 5% PATCH TRANSDERM SCH (09:36)
[2017-07-16] MEDS: amLODIPine 5 MG TABLET PO SCH (09:36)
[2017-07-16] MEDS: ALLOPURINOL 300 MG TABLET PO SCH (09:36)
[2017-07-16] MEDS: DOCUSATE SODIUM 100 MG CAPSULE PO SCH ×2 (09:36→21:49)
[2017-07-16] MEDS: PANTOPRAZOLE 40 MG TABLET PO SCH ×2 (09:36→21:56)
[2017-07-16] MEDS: SERTRALINE 50 MG TABLET PO SCH (09:36)
[2017-07-16] MEDS: CALCITRIOL 0.25 MCG CAPSULE PO SCH (09:39)
[2017-07-16] MEDS: ENOXAPARIN 40 MG/0.4 ML SYRINGE SUBCUT SCH (16:20)
[2017-07-16] MEDS: ZALEPLON 5 MG CAPSULE PO SCH (21:49)
[2017-07-16] MEDS: ACETAMINOPHEN 325 MG TABLET PO PRN (21:49)
[2017-07-17] MEDS: ONDANSETRON 4 MG/2 ML VIAL IV SCH ×5 (05:34→23:30)
[2017-07-17 05:44] LABS: Basophils # 0.1 10*3/uL (0.0-0.2); Basophils % 0.5 % (0.0-0.8); Eosinophils # 0.4 10*3/uL (0.0-0.87); Eosinophils % 3.6 % (0.00-10.9); Hematocrit 28.3 VOL% (35.7-47.0); Hemoglobin 9.3 GM/DL (12.0-16.0); Immature Granulocytes % 5.4 %; Immature Granulocytes Absolute 0.52 #; Lymphocytes # 1.1 10*3/uL (1.4-4.0); Lymphocytes % 11.5 % (21.3-54.2); Mean Corpuscular HGB Conc 32.9 GM/DL (32-36); Mean Corpuscular Hemoglobin 33 PG (27-34); Mean Corpuscular Volume 100.7 FL (87-102); Mean Platelet Volume 10.8 FL (9.6-12.0); Monocytes # 0.5 10*3/uL (0.11-0.8); Monocytes % 4.7 % (1.7-12.7); Neutrophils # 7.2 10*3/uL (1.4-7.4); Neutrophils % 74.3 % (38.7-73.9); Platelet Count 189 T/CUMM (130-400); Red Blood Count 2.81 MC/CUMM (3.8-5.5); Red Cell Distribution Width 15.5 % (9.3-17.3); White Blood Count 9.7 T/CUMM (4-12)
[2017-07-17 06:01] LABS: Albumin 2.5 G/DL (3.4-5.0); Bilirubin,Total 0.8 MG/DL (0.2-1.0); Calcium 8.9 MG/DL (8.5-10.1); Osmolality,Calculated 283.5 MOS/KG (273-304); Potassium 4.4 MMOL/L (3.5-5.1); Total Protein 6.6 G/DL (6.4-8.3)
[2017-07-17 06:08] LABS: Band Neutrophils 1 % (0-10); Eosinophils 5 % (0-10); Hypochromasia 1+; Lymphocytes 12 % (20-55); Macrocytosis Slight; Ovalocytes Slight; Platelet Estimate Normal; Segmented Neutrophils 80 % (50-85); Total Cells Counted 100
[2017-07-17] MEDS: INSULIN LISPRO 100 UNIT/ML SUBCUT SCH ×4 (09:27→21:16)
[2017-07-17] MEDS: THEOPHYLLINE ER (24 HR) 400 MG CAPSULE PO SCH (09:27)
[2017-07-17] MEDS: CARVEDILOL 3.125 MG TABLET PO SCH ×2 (09:27→21:17)
[2017-07-17] MEDS: DOCUSATE SODIUM 100 MG CAPSULE PO SCH ×2 (09:27→21:17)
[2017-07-17] MEDS: PANTOPRAZOLE 40 MG TABLET PO SCH ×2 (09:27→21:17)
[2017-07-17] MEDS: amLODIPine 5 MG TABLET PO SCH (09:27)
[2017-07-17] MEDS: MAGNESIUM CHLORIDE 64 MG TABLET PO SCH ×2 (09:27→21:17)
[2017-07-17] MEDS: ALLOPURINOL 300 MG TABLET PO SCH (09:27)
[2017-07-17] MEDS: LIDOCAINE 5% PATCH TRANSDERM SCH (09:28)
[2017-07-17] MEDS: SERTRALINE 50 MG TABLET PO SCH (09:28)
[2017-07-17] MEDS: LOSARTAN 25 MG TABLET PO SCH (09:29)
[2017-07-17] MEDS: ASPIRIN EC 81 MG TABLET PO SCH (09:29)
[2017-07-17] MEDS: ONDANSETRON 4 MG/2 ML VIAL IV PRN (14:42)
[2017-07-17] MEDS: ACETAMINOPHEN 325 MG TABLET PO PRN (16:10)
[2017-07-17] MEDS: ENOXAPARIN 40 MG/0.4 ML SYRINGE SUBCUT SCH (16:10)
[2017-07-17] MEDS: ZALEPLON 5 MG CAPSULE PO SCH (21:17)
[2017-07-18] MEDS: ACETAMINOPHEN 325 MG TABLET PO PRN ×2 (01:10→10:56)
[2017-07-18] MEDS: ONDANSETRON 4 MG/2 ML VIAL IV SCH ×3 (05:30→16:33)
[2017-07-18] MEDS: SERTRALINE 50 MG TABLET PO SCH (08:54)
[2017-07-18] MEDS: CALCITRIOL 0.25 MCG CAPSULE PO SCH (08:54)
[2017-07-18] MEDS: MAGNESIUM CHLORIDE 64 MG TABLET PO SCH ×2 (08:54→21:31)
[2017-07-18] MEDS: LOSARTAN 25 MG TABLET PO SCH (08:55)
[2017-07-18] MEDS: THEOPHYLLINE ER (24 HR) 400 MG CAPSULE PO SCH (08:55)
[2017-07-18] MEDS: ASPIRIN EC 81 MG TABLET PO SCH (08:55)
[2017-07-18] MEDS: PANTOPRAZOLE 40 MG TABLET PO SCH ×2 (08:55→21:31)
[2017-07-18] MEDS: DOCUSATE SODIUM 100 MG CAPSULE PO SCH ×2 (08:55→21:31)
[2017-07-18] MEDS: CARVEDILOL 3.125 MG TABLET PO SCH ×2 (08:56→21:31)
[2017-07-18] MEDS: LIDOCAINE 5% PATCH TRANSDERM SCH (08:56)
[2017-07-18] MEDS: amLODIPine 5 MG TABLET PO SCH (08:56)
[2017-07-18] MEDS: ALLOPURINOL 300 MG TABLET PO SCH (08:56)
[2017-07-18] MEDS: INSULIN LISPRO 100 UNIT/ML SUBCUT SCH ×4 (09:46→21:32)
[2017-07-18] MEDS: ENOXAPARIN 40 MG/0.4 ML SYRINGE SUBCUT SCH (16:33)
[2017-07-19 05:57] LABS: Basophils # 0.1 10*3/uL (0.0-0.2); Basophils % 0.9 % (0.0-0.8); Eosinophils # 0.4 10*3/uL (0.0-0.87); Eosinophils % 4.1 % (0.00-10.9); Hematocrit 28.6 VOL% (35.7-47.0); Hemoglobin 9.7 GM/DL (12.0-16.0); Immature Granulocytes % 5.5 %; Lymphocytes # 1.2 10*3/uL (1.4-4.0); Lymphocytes % 12.8 % (21.3-54.2); Mean Corpuscular HGB Conc 33.9 GM/DL (32-36); Mean Corpuscular Hemoglobin 34 PG (27-34); Mean Platelet Volume 10.5 FL (9.6-12.0); Monocytes # 0.5 10*3/uL (0.11-0.8); Monocytes % 5.5 % (1.7-12.7); Neutrophils # 6.5 10*3/uL (1.4-7.4); Neutrophils % 71.2 % (38.7-73.9); Platelet Count 268 T/CUMM (130-400); Red Blood Count 2.86 MC/CUMM (3.8-5.5); Red Cell Distribution Width 15.4 % (9.3-17.3); White Blood Count 9.1 T/CUMM (4-12)
[2017-07-19 06:02] LABS: Osmolality,Calculated 276.7 MOS/KG (273-304); Potassium 4.4 MMOL/L (3.5-5.1)
[2017-07-19] MEDS: ONDANSETRON 4 MG/2 ML VIAL IV SCH (06:05)
[2017-07-19 06:20] LABS: Giant Platelets Few; Hypochromasia 1+; Macrocytosis Slight; Ovalocytes Slight; Platelet Estimate Adequate
[2017-07-19] MEDS: INSULIN LISPRO 100 UNIT/ML SUBCUT SCH (08:21)
[2017-07-19] MEDS: LIDOCAINE 5% PATCH TRANSDERM SCH (09:26)
[2017-07-19] MEDS: ASPIRIN EC 81 MG TABLET PO SCH (09:28)
[2017-07-19] MEDS: THEOPHYLLINE ER (24 HR) 400 MG CAPSULE PO SCH (09:28)
[2017-07-19] MEDS: amLODIPine 5 MG TABLET PO SCH (09:29)
[2017-07-19] MEDS: DOCUSATE SODIUM 100 MG CAPSULE PO SCH (09:29)
[2017-07-19] MEDS: MAGNESIUM CHLORIDE 64 MG TABLET PO SCH (09:29)
[2017-07-19] MEDS: ALLOPURINOL 300 MG TABLET PO SCH (09:29)
[2017-07-19] MEDS: PANTOPRAZOLE 40 MG TABLET PO SCH (09:30)
[2017-07-19] MEDS: CARVEDILOL 3.125 MG TABLET PO SCH (09:30)
[2017-07-19] MEDS: SERTRALINE 50 MG TABLET PO SCH (09:31)
[2017-07-19] MEDS: LOSARTAN 25 MG TABLET PO SCH (09:31)
[2017-07-19] MEDS ORDERED: cloNIDine 0.1 MG TABLET PO ONE (11:34)
[2017-07-19 12:02] VITALS: BP 198/83
== END 2017-07-19 11:57 | disposition swing bed (61) | DRG 189 ==
LOC: N.CC 12:33 → N.2E 07-13 23:51
PROVIDERS: ADMIT Family Medicine; ATTEND Family Medicine

== ENCOUNTER 2017-10-04 21:16 | Inpatient (IN) ==
[2017-10-04 23:14] LABS: Basophils % 0.4 % (0.0-0.8); Eosinophils # 0.2 10*3/uL (0.0-0.87); Hematocrit 22.3 VOL% (35.7-47.0); Immature Granulocytes % 8.3 %; Immature Granulocytes Absolute 0.67 #; Lymphocytes # 1.3 10*3/uL (1.4-4.0); Lymphocytes % 15.6 % (21.3-54.2); Mean Corpuscular HGB Conc 31.4 GM/DL (32-36); Mean Corpuscular Hemoglobin 35 PG (27-34); Mean Corpuscular Volume 109.9 FL (87-102); Mean Platelet Volume 10.8 FL (9.6-12.0); Monocytes # 0.4 10*3/uL (0.11-0.8); Monocytes % 5.4 % (1.7-12.7); NRBC # 0.04 10*3/uL; Neutrophils # 5.4 10*3/uL (1.4-7.4); Neutrophils % 67.3 % (38.7-73.9); Platelet Count 221 T/CUMM (130-400); Red Blood Count 2.03 MC/CUMM (3.8-5.5); Red Cell Distribution Width 20.3 % (9.3-17.3)
[2017-10-04 23:15] LABS: VBG Base Excess 0.5 MEQ/L (0-4); VBG HCO3 24.9 MEQ/L (24-28); VBG Oxygen Saturation 99.7 %; VBG PCO2 48.8 MMHG (41-51); VBG PH 7.343
[2017-10-04 23:41] LABS: Band Neutrophils 6 % (0-10); Eosinophils 1 % (0-10); Lymphocytes 17 % (20-55); Metamyelocytes 1 %; Myelocytes 4 %; Nucleated Red Blood Cells 1 (0-5); Segmented Neutrophils 69 % (50-85); Total Cells Counted 100
[2017-10-04 23:42] LABS: Anisocytosis 1+
[2017-10-04 23:43] LABS: Ovalocytes Few; Platelet Estimate Adequate; Tear Drop Cells 1+
[2017-10-04] MEDS ORDERED: SODIUM CHLORIDE 0.9% 1,000 ML IV PRN ×2 (23:58→23:59)
[2017-10-05 00:59] LABS: Albumin 3.1 G/DL (3.4-5.0); Bilirubin,Total 0.4 MG/DL (0.2-1.0); Calcium 8.2 MG/DL (8.5-10.1); Osmolality,Calculated 286.3 MOS/KG (273-304); Total Protein 6.7 G/DL (6.4-8.3)
[2017-10-05] MEDS ORDERED: ACETAMINOPHEN 325 MG TABLET PO PRN (08:19)
[2017-10-05] MEDS ORDERED: TEMAZEPAM 15 MG CAPSULE PO PRN (08:19)
[2017-10-05] MEDS ORDERED: ALBUTEROL/IPRATROPIUM 3 ML NEB RESP TX PRN (08:19)
[2017-10-05] MEDS ORDERED: LOPERAMIDE 2 MG CAPSULE PO PRN (08:19)
[2017-10-05] MEDS ORDERED: PHENYLEPHRINE 0.5% NASAL SPRAY 15 ML BOTTLE BOTH NARES PRN (09:00)
[2017-10-05] MEDS: MULTIVITAMIN (CENTRUM) TABLET PO SCH (10:23)
[2017-10-05] MEDS: CALCITRIOL 0.25 MCG CAPSULE PO SCH (10:23)
[2017-10-05] MEDS: CLOPIDOGREL 75 MG TABLET PO SCH (10:23)
[2017-10-05] MEDS: MAGNESIUM CHLORIDE 64 MG TABLET PO SCH (10:24)
[2017-10-05] MEDS: SERTRALINE 50 MG TABLET PO SCH (10:24)
[2017-10-05] MEDS: ALLOPURINOL 300 MG TABLET PO SCH (10:24)
[2017-10-05] MEDS: CETIRIZINE 10 MG TABLET PO SCH (10:24)
[2017-10-05] MEDS: LOSARTAN 50 MG TABLET PO SCH (10:24)
[2017-10-05] MEDS: ASPIRIN EC 81 MG TABLET PO SCH (10:24)
[2017-10-05] MEDS: CARVEDILOL 6.25 MG TABLET PO SCH ×2 (10:25→21:18)
[2017-10-05] MEDS: PANTOPRAZOLE 40 MG TABLET PO SCH ×2 (10:25→21:18)
[2017-10-05] MEDS: FLUTICASONE 50 MCG NASAL SPRAY 16 GM BOTTLE BOTH NARES SCH (10:25)
[2017-10-05] MEDS: ZINC OXIDE PASTE 113 GM TUBE TOP SCH ×2 (11:00→21:18)
[2017-10-05 14:45] LABS: Basophils % 0.4 % (0.0-0.8); Eosinophils # 0.2 10*3/uL (0.0-0.87); Eosinophils % 2.5 % (0.00-10.9); Hematocrit 23.9 VOL% (35.7-47.0); Hemoglobin 7.4 GM/DL (12.0-16.0); Immature Granulocytes % 7.8 %; Lymphocytes # 1.2 10*3/uL (1.4-4.0); Lymphocytes % 15.4 % (21.3-54.2); Mean Corpuscular Hemoglobin 33 PG (27-34); Mean Corpuscular Volume 106.7 FL (87-102); Mean Platelet Volume 10.4 FL (9.6-12.0); Monocytes # 0.4 10*3/uL (0.11-0.8); Monocytes % 5.2 % (1.7-12.7); NRBC # 0.03 10*3/uL; Neutrophils # 5.3 10*3/uL (1.4-7.4); Neutrophils % 68.7 % (38.7-73.9); Platelet Count 195 T/CUMM (130-400); Red Blood Count 2.24 MC/CUMM (3.8-5.5); Red Cell Distribution Width 21.9 % (9.3-17.3); White Blood Count 7.7 T/CUMM (4-12)
[2017-10-05 15:13] LABS: ABG Base Excess -0.6 MMOL/L (-2.5-2.5); ABG HCO3 23.7 MMOL/L (20-26); ABG Oxygen Saturation 88.5 % (95-100); ABG PCO2 60.9 MM HG (35-48); ABG PH 7.271 (7.35-7.45); ABG PO2 63.3 MM HG (80-95); ABG TCO2 24.9 MMOL/L (23-27)
[2017-10-05 15:14] LABS: Band Neutrophils 7 % (0-10); Eosinophils 4 % (0-10); Hypochromasia Slight; Lymphocytes 20 % (20-55); Macrocytosis 1+; Platelet Estimate Normal; Segmented Neutrophils 66 % (50-85); Total Cells Counted 100
[2017-10-05 15:15] LABS: Polychromasia Slight
[2017-10-05 15:29] LABS: Folate 10.2 NG/ML (5.4-24.0); Vitamin B12 525 PG/ML (211-911)
[2017-10-05 15:50] LABS: Sedimentation Rate-Westergren 97 MM/HR (0-30)
[2017-10-05] MEDS: guaiFENesin 200 MG/10 ML UDCUP PO PRN (19:41)
[2017-10-06 05:21] LABS: Basophils % 0.4 % (0.0-0.8); Eosinophils # 0.2 10*3/uL (0.0-0.87); Eosinophils % 2.8 % (0.00-10.9); Hematocrit 26.9 VOL% (35.7-47.0); Hemoglobin 8.3 GM/DL (12.0-16.0); Immature Granulocytes % 8.1 %; Immature Granulocytes Absolute 0.62 #; Lymphocytes # 1.4 10*3/uL (1.4-4.0); Lymphocytes % 18.2 % (21.3-54.2); Mean Corpuscular HGB Conc 30.9 GM/DL (32-36); Mean Corpuscular Hemoglobin 33 PG (27-34); Mean Corpuscular Volume 105.5 FL (87-102); Mean Platelet Volume 10.7 FL (9.6-12.0); Monocytes # 0.4 10*3/uL (0.11-0.8); Monocytes % 5.5 % (1.7-12.7); NRBC # 0.02 10*3/uL; Platelet Count 225 T/CUMM (130-400); Red Blood Count 2.55 MC/CUMM (3.8-5.5); Red Cell Distribution Width 21.9 % (9.3-17.3); White Blood Count 7.6 T/CUMM (4-12)
[2017-10-06 05:26] LABS: Calcium 8.2 MG/DL (8.5-10.1); Osmolality,Calculated 283.3 MOS/KG (273-304); Potassium 4.6 MMOL/L (3.5-5.1)
[2017-10-06 05:58] LABS: Band Neutrophils 5 % (0-10); Eosinophils 4 % (0-10); Lymphocytes 15 % (20-55); Myelocytes 3 %; Nucleated Red Blood Cells 1 (0-5); Segmented Neutrophils 71 % (50-85); Total Cells Counted 100
[2017-10-06 06:00] LABS: Anisocytosis 1+; Hypochromasia 1+; Tear Drop Cells 1+
[2017-10-06 06:01] LABS: Platelet Estimate Adequate
[2017-10-06 06:52] LABS: Apearance,Urine CLOUDY (Clear); Bacteria,Urine Many /HPF (Few); Bilirubin,Urine Negative (Negative); Blood, Urine Negative (Negative); Glucose,Urine (UA) Negative (Negative); Hyaline Casts,Urine 1 /LPF (0-3); Ketones,Urine Negative (Negative); Mucus,Urine Occasional /LPF (Occasional); Nitrite,Urine Positive (Negative); Protein,Urine 30 MG/DL; RBC,Urine 2 /HPF (0-4); Squamous Epithelial Cell,Urine Occasional /HPF (0-10); Urine Color Yellow (Yellow); Urine Specific Gravity 1.016 (1.001-1.035); Urine Urobilinogen < 2.0 EU/DL (0.2-1.0); WBC,Urine 84 /HPF (0-6)
[2017-10-06] MEDS: LOSARTAN 50 MG TABLET PO SCH (09:53)
[2017-10-06] MEDS: CETIRIZINE 10 MG TABLET PO SCH (09:53)
[2017-10-06] MEDS: MULTIVITAMIN (CENTRUM) TABLET PO SCH (09:53)
[2017-10-06] MEDS: FLUTICASONE 50 MCG NASAL SPRAY 16 GM BOTTLE BOTH NARES SCH (09:53)
[2017-10-06] MEDS: SERTRALINE 50 MG TABLET PO SCH (09:54)
[2017-10-06] MEDS: MAGNESIUM CHLORIDE 64 MG TABLET PO SCH (09:54)
[2017-10-06] MEDS: ASPIRIN EC 81 MG TABLET PO SCH (09:54)
[2017-10-06] MEDS: PANTOPRAZOLE 40 MG TABLET PO SCH ×2 (09:54→22:57)
[2017-10-06] MEDS: ALLOPURINOL 300 MG TABLET PO SCH (09:54)
[2017-10-06] MEDS: CLOPIDOGREL 75 MG TABLET PO SCH (09:54)
[2017-10-06] MEDS: CARVEDILOL 6.25 MG TABLET PO SCH ×2 (09:54→22:57)
[2017-10-06] MEDS: ZINC OXIDE PASTE 113 GM TUBE TOP SCH ×2 (09:55→20:15)
[2017-10-06] MEDS: guaiFENesin 200 MG/10 ML UDCUP PO PRN (15:27)
[2017-10-06] MEDS ORDERED: FUROSEMIDE 40 MG/4 ML VIAL IV ONE (15:54)
[2017-10-06] MEDS ORDERED: POTASSIUM CHLORIDE 10 MEQ TABLET PO ONE (15:56)
[2017-10-06 21:32] LABS: ABG Base Excess 0.7 MMOL/L (-2.5-2.5); ABG Oxygen Saturation 93.7 % (95-100); ABG PO2 77.7 MM HG (80-95); ABG TCO2 28.3 MMOL/L (23-27); Allen Test Positive; Pt O2 Delivery Device BIPAP
[2017-10-06 21:34] LABS: ABG PCO2 73.6 MM HG (35-48)
[2017-10-07 00:12] LABS: ABG Base Excess 2.6 MMOL/L (-2.5-2.5); ABG HCO3 30.2 MMOL/L (20-26); ABG Oxygen Saturation 83.3 % (95-100); ABG PCO2 62.7 MM HG (35-48); ABG PH 7.301 (7.35-7.45); ABG PO2 54.3 MM HG (80-95); ABG TCO2 32.2 MMOL/L (23-27); Allen Test Positive; Pt O2 Delivery Device BIPAP
[2017-10-07 03:23] LABS: ABG Base Excess 2.1 MMOL/L (-2.5-2.5); ABG HCO3 26.2 MMOL/L (20-26); ABG Oxygen Saturation 91.9 % (95-100); ABG PCO2 59.6 MM HG (35-48); ABG PH 7.301 (7.35-7.45); ABG PO2 66.9 MM HG (80-95); ABG TCO2 27.6 MMOL/L (23-27); Allen Test Positive; Pt O2 Delivery Device BIPAP
[2017-10-07 04:29] LABS: Basophils % 0.6 % (0.0-0.8); Eosinophils # 0.2 10*3/uL (0.0-0.87); Eosinophils % 2.1 % (0.00-10.9); Hematocrit 26.3 VOL% (35.7-47.0); Hemoglobin 8.2 GM/DL (12.0-16.0); Immature Granulocytes % 8.1 %; Immature Granulocytes Absolute 0.58 #; Lymphocytes # 1.5 10*3/uL (1.4-4.0); Lymphocytes % 20.8 % (21.3-54.2); Mean Corpuscular HGB Conc 31.2 GM/DL (32-36); Mean Corpuscular Hemoglobin 32 PG (27-34); Mean Corpuscular Volume 103.5 FL (87-102); Mean Platelet Volume 10.8 FL (9.6-12.0); Monocytes # 0.5 10*3/uL (0.11-0.8); Neutrophils # 4.4 10*3/uL (1.4-7.4); Neutrophils % 61.4 % (38.7-73.9); Platelet Count 223 T/CUMM (130-400); Red Blood Count 2.54 MC/CUMM (3.8-5.5); Red Cell Distribution Width 21.2 % (9.3-17.3); White Blood Count 7.1 T/CUMM (4-12)
[2017-10-07 05:16] LABS: Calcium 8.4 MG/DL (8.5-10.1); Eosinophils 4 % (0-10); Lymphocytes 25 % (20-55); Osmolality,Calculated 280.4 MOS/KG (273-304); Platelet Estimate Normal; Potassium 4.6 MMOL/L (3.5-5.1); Segmented Neutrophils 65 % (50-85); Total Cells Counted 100
[2017-10-07 07:00] LABS: Calcium 8.5 MG/DL (8.5-10.1)
[2017-10-07 07:01] LABS: Bilirubin,Total 0.49 MG/DL (0.2-1.0); Total Protein 6.5 G/DL (6.4-8.3)
[2017-10-07 07:02] LABS: Osmolality,Calculated 280.4 MOS/KG (273-304); Potassium 4.6 MMOL/L (3.5-5.1)
[2017-10-07 08:31] LABS: Apearance,Urine CLOUDY (Clear); Bacteria,Urine Many /HPF (Few); Bilirubin,Urine Negative (Negative); Blood, Urine Small mg/dL (Negative); Glucose,Urine (UA) Negative (Negative); Ketones,Urine Negative (Negative); Mucus,Urine Occasional /LPF (Occasional); Nitrite,Urine Positive (Negative); Protein,Urine Negative; RBC,Urine 9 /HPF (0-4); Squamous Epithelial Cell,Urine Few /HPF (0-10); Urine Color Yellow (Yellow); Urine Specific Gravity 1.011 (1.001-1.035); Urine Urobilinogen < 2.0 EU/DL (0.2-1.0); WBC,Urine 472 /HPF (0-6)
[2017-10-07] MEDS: CLOPIDOGREL 75 MG TABLET PO SCH (09:34)
[2017-10-07] MEDS: SERTRALINE 50 MG TABLET PO SCH (09:34)
[2017-10-07] MEDS: MAGNESIUM CHLORIDE 64 MG TABLET PO SCH (09:34)
[2017-10-07] MEDS: ASPIRIN EC 81 MG TABLET PO SCH (09:35)
[2017-10-07] MEDS: MULTIVITAMIN (CENTRUM) TABLET PO SCH (09:35)
[2017-10-07] MEDS: LOSARTAN 50 MG TABLET PO SCH (09:35)
[2017-10-07] MEDS: PANTOPRAZOLE 40 MG TABLET PO SCH ×2 (09:36→20:04)
[2017-10-07] MEDS: ALLOPURINOL 300 MG TABLET PO SCH (09:36)
[2017-10-07] MEDS: CETIRIZINE 10 MG TABLET PO SCH (09:36)
[2017-10-07] MEDS: FLUTICASONE 50 MCG NASAL SPRAY 16 GM BOTTLE BOTH NARES SCH (09:36)
[2017-10-07] MEDS: CARVEDILOL 6.25 MG TABLET PO SCH ×2 (09:36→20:04)
[2017-10-07] MEDS: ZINC OXIDE PASTE 113 GM TUBE TOP SCH ×2 (09:46→20:05)
[2017-10-07] MEDS: guaiFENesin 200 MG/10 ML UDCUP PO PRN (15:55)
[2017-10-07] MEDS: CIPROFLOXACIN 500 MG TABLET PO SCH (20:04)
[2017-10-08 04:21] LABS: ABG Base Excess 1.7 MMOL/L (-2.5-2.5); ABG HCO3 25.8 MMOL/L (20-26); ABG Oxygen Saturation 92.4 % (95-100); ABG PCO2 63.9 MM HG (35-48); ABG PH 7.275 (7.35-7.45); ABG PO2 70.5 MM HG (80-95); ABG TCO2 27.9 MMOL/L (23-27); Allen Test Positive
[2017-10-08 05:26] LABS: Calcium 8.3 MG/DL (8.5-10.1); Calcium 8.7 MG/DL (8.5-10.1); Osmolality,Calculated 276.8 MOS/KG (273-304); Osmolality,Calculated 278.7 MOS/KG (273-304); Potassium 4.5 MMOL/L (3.5-5.1); Potassium 4.6 MMOL/L (3.5-5.1)
[2017-10-08] MEDS: CIPROFLOXACIN 500 MG TABLET PO SCH (10:30)
[2017-10-08] MEDS: CALCITRIOL 0.25 MCG CAPSULE PO SCH (10:53)
[2017-10-08] MEDS: CARVEDILOL 6.25 MG TABLET PO SCH ×2 (10:54→20:19)
[2017-10-08] MEDS: MAGNESIUM CHLORIDE 64 MG TABLET PO SCH (10:54)
[2017-10-08] MEDS: MULTIVITAMIN (CENTRUM) TABLET PO SCH (10:54)
[2017-10-08] MEDS: CLOPIDOGREL 75 MG TABLET PO SCH (10:54)
[2017-10-08] MEDS: CETIRIZINE 10 MG TABLET PO SCH (10:55)
[2017-10-08] MEDS: LOSARTAN 50 MG TABLET PO SCH (10:55)
[2017-10-08] MEDS: ASPIRIN EC 81 MG TABLET PO SCH (10:55)
[2017-10-08] MEDS: ALLOPURINOL 300 MG TABLET PO SCH (10:55)
[2017-10-08] MEDS: FLUTICASONE 50 MCG NASAL SPRAY 16 GM BOTTLE BOTH NARES SCH (10:56)
[2017-10-08] MEDS: ZINC OXIDE PASTE 113 GM TUBE TOP SCH ×2 (10:56→23:32)
[2017-10-08] MEDS: PANTOPRAZOLE 40 MG TABLET PO SCH ×2 (11:03→20:18)
[2017-10-08] MEDS: SERTRALINE 50 MG TABLET PO SCH (11:03)
[2017-10-08] MEDS ORDERED: FUROSEMIDE 40 MG TABLET PO ONE (13:03)
[2017-10-08] MEDS: guaiFENesin 200 MG/10 ML UDCUP PO PRN (20:18)
[2017-10-08] MEDS: AMOXICILLIN/CLAV 875 MG TABLET PO SCH (20:18)
[2017-10-09 03:18] LABS: ABG Base Excess 3.5 MMOL/L (-2.5-2.5); ABG HCO3 27.5 MMOL/L (20-26); ABG Oxygen Saturation 93.3 % (95-100); ABG PCO2 58.4 MM HG (35-48); ABG PH 7.332 (7.35-7.45); ABG PO2 70.3 MM HG (80-95); ABG TCO2 27.9 MMOL/L (23-27); Allen Test Positive; Pt O2 Delivery Device CPAP
[2017-10-09 06:32] LABS: Basophils # 0.1 10*3/uL (0.0-0.2); Basophils % 0.7 % (0.0-0.8); Eosinophils # 0.3 10*3/uL (0.0-0.87); Eosinophils % 3.3 % (0.00-10.9); Hematocrit 26.3 VOL% (35.7-47.0); Hemoglobin 8.2 GM/DL (12.0-16.0); Immature Granulocytes % 7.5 %; Immature Granulocytes Absolute 0.57 #; Lymphocytes # 1.3 10*3/uL (1.4-4.0); Lymphocytes % 17.4 % (21.3-54.2); Mean Corpuscular HGB Conc 31.2 GM/DL (32-36); Mean Corpuscular Hemoglobin 33 PG (27-34); Mean Corpuscular Volume 104.4 FL (87-102); Mean Platelet Volume 10.7 FL (9.6-12.0); Monocytes # 0.4 10*3/uL (0.11-0.8); Monocytes % 5.7 % (1.7-12.7); Neutrophils % 65.4 % (38.7-73.9); Platelet Count 221 T/CUMM (130-400); Red Blood Count 2.52 MC/CUMM (3.8-5.5); Red Cell Distribution Width 19.6 % (9.3-17.3); White Blood Count 7.6 T/CUMM (4-12)
[2017-10-09 07:11] LABS: Hypochromasia 1+; Platelet Estimate Adequate
[2017-10-09 07:13] LABS: Calcium 8.9 MG/DL (8.5-10.1); Osmolality,Calculated 272.1 MOS/KG (273-304); Potassium 4.7 MMOL/L (3.5-5.1)
[2017-10-09 09:16] LABS: Hemoglobin A1 (Alkaline) 96.8 % (96.5-98.5); Hemoglobin A2 (Alkaline) 3.2 % (1.5-3.5)
[2017-10-09] MEDS: ASPIRIN EC 81 MG TABLET PO SCH (09:20)
[2017-10-09] MEDS: PANTOPRAZOLE 40 MG TABLET PO SCH ×2 (09:20→23:18)
[2017-10-09] MEDS: MAGNESIUM CHLORIDE 64 MG TABLET PO SCH (09:20)
[2017-10-09] MEDS: ALLOPURINOL 300 MG TABLET PO SCH (09:20)
[2017-10-09] MEDS: AMOXICILLIN/CLAV 875 MG TABLET PO SCH ×2 (09:20→23:18)
[2017-10-09] MEDS: MULTIVITAMIN (CENTRUM) TABLET PO SCH (09:20)
[2017-10-09] MEDS: SERTRALINE 50 MG TABLET PO SCH (09:21)
[2017-10-09] MEDS: LOSARTAN 50 MG TABLET PO SCH (09:21)
[2017-10-09] MEDS: CARVEDILOL 6.25 MG TABLET PO SCH ×2 (09:21→23:18)
[2017-10-09] MEDS: CETIRIZINE 10 MG TABLET PO SCH (09:21)
[2017-10-09] MEDS: FLUTICASONE 50 MCG NASAL SPRAY 16 GM BOTTLE BOTH NARES SCH (09:22)
[2017-10-09] MEDS: ZINC OXIDE PASTE 113 GM TUBE TOP SCH ×2 (09:22→23:23)
[2017-10-09] MEDS: CLOPIDOGREL 75 MG TABLET PO SCH (09:23)
[2017-10-10 07:29] LABS: Basophils % 0.4 % (0.0-0.8); Eosinophils # 0.2 10*3/uL (0.0-0.87); Eosinophils % 3.4 % (0.00-10.9); Hematocrit 26.3 VOL% (35.7-47.0); Hemoglobin 8.1 GM/DL (12.0-16.0); Immature Granulocytes % 8.1 %; Immature Granulocytes Absolute 0.55 #; Lymphocytes # 1.2 10*3/uL (1.4-4.0); Lymphocytes % 17.2 % (21.3-54.2); Mean Corpuscular HGB Conc 30.8 GM/DL (32-36); Mean Corpuscular Hemoglobin 32 PG (27-34); Mean Corpuscular Volume 104.8 FL (87-102); Mean Platelet Volume 10.8 FL (9.6-12.0); Monocytes # 0.4 10*3/uL (0.11-0.8); Monocytes % 5.3 % (1.7-12.7); NRBC # 0.02 10*3/uL; Neutrophils # 4.5 10*3/uL (1.4-7.4); Neutrophils % 65.6 % (38.7-73.9); Platelet Count 211 T/CUMM (130-400); Red Blood Count 2.51 MC/CUMM (3.8-5.5); Red Cell Distribution Width 19.6 % (9.3-17.3); White Blood Count 6.8 T/CUMM (4-12)
[2017-10-10 07:49] LABS: Band Neutrophils 7 % (0-10); Eosinophils 2 % (0-10); Hypochromasia 1+; Lymphocytes 15 % (20-55); Ovalocytes Slight; Platelet Estimate Adequate; Segmented Neutrophils 73 % (50-85); Total Cells Counted 100
[2017-10-10] MEDS: CALCITRIOL 0.25 MCG CAPSULE PO SCH (09:09)
[2017-10-10] MEDS: LOSARTAN 50 MG TABLET PO SCH (09:09)
[2017-10-10] MEDS: CLOPIDOGREL 75 MG TABLET PO SCH (09:09)
[2017-10-10] MEDS: MULTIVITAMIN (CENTRUM) TABLET PO SCH (09:09)
[2017-10-10] MEDS: PANTOPRAZOLE 40 MG TABLET PO SCH (09:09)
[2017-10-10] MEDS: CETIRIZINE 10 MG TABLET PO SCH (09:09)
[2017-10-10] MEDS: AMOXICILLIN/CLAV 875 MG TABLET PO SCH (09:09)
[2017-10-10] MEDS: CARVEDILOL 6.25 MG TABLET PO SCH (09:09)
[2017-10-10] MEDS: ALLOPURINOL 300 MG TABLET PO SCH (09:10)
[2017-10-10] MEDS: FLUTICASONE 50 MCG NASAL SPRAY 16 GM BOTTLE BOTH NARES SCH (09:10)
[2017-10-10] MEDS: MAGNESIUM CHLORIDE 64 MG TABLET PO SCH (09:10)
[2017-10-10] MEDS: SERTRALINE 50 MG TABLET PO SCH (09:10)
[2017-10-10] MEDS: ASPIRIN EC 81 MG TABLET PO SCH (09:10)
[2017-10-10] MEDS: ZINC OXIDE PASTE 113 GM TUBE TOP SCH (11:14)
[2017-10-10 12:06] VITALS: BP 139/67
== END 2017-10-10 14:59 | disposition swing bed (61) | DRG 189 ==
LOC: EDUNIT# → EDBD → N.EDINP 21:16 → N.ED 21:16 → N.3E 10-05 02:19 → N.ICU 10-06 22:18 → N.2E 10-08 17:53
PROVIDERS: ADMIT Family Medicine; ATTEND Family Medicine